=== PATIENT | male | born 1990 | race African-American/Black ===

== ENCOUNTER 2018-03-03 08:14 | Emergency (ER) | payer SELFPAY ==
[~2018-03-03] VITALS: Ht 195.5 cm; Wt 158.8 kg
[2018-03-03] MEDS ORDERED: LIDEX 0.05% CRE15 GM T (08:33)
[2018-03-03] MEDS ORDERED: PREDNISONE20 M1 PO (08:33)
== END 2018-03-03 08:45 | disposition home or self-care (01) ==
LOC: ED 08:14
DX: L25.9 Unspecified contact dermatitis, unspecified cause (principal)